=== PATIENT | female | born 2005 | race African-American/Black ===

== ENCOUNTER 2024-12-12 22:11 | Emergency (ER) | payer OTHER ==
[2024-12-13] MEDS ORDERED: Naproxen 500 MG TAB ONE (01:04)
== END 2024-12-13 01:21 | disposition home or self-care (01) ==
LOC: CSHERS 22:11
DX: S93.401A Sprain of unspecified ligament of right ankle, initial encounter (principal); W05.1XXA Fall from non-moving nonmotorized scooter, initial encounter
CPT/HCPCS: 99283

== ENCOUNTER 2025-01-22 10:47 | Outpatient (CLI) | payer OTHER | END 2025-01-22 10:48 | disposition home or self-care (01) | LOC: CSHRAD 10:47 | PROVIDERS: ATTEND Nurse Practitioner Family | DX: S91.312A Laceration without foreign body, left foot, initial encounter (principal); S91.311A Laceration without foreign body, right foot, initial encounter ==

== ENCOUNTER 2025-01-31 10:53 | Outpatient (CLI) | payer OTHER | END 2025-01-31 10:54 | disposition home or self-care (01) | LOC: CSHWCC 10:53 | PROVIDERS: ATTEND Nurse Practitioner Family | DX: S91.311D Laceration without foreign body, right foot, subsequent encounter (principal); S91.312D Laceration without foreign body, left foot, subsequent encounter | CPT/HCPCS: 99212; G0463 ==